=== PATIENT | female | born 1975 | race Caucasian/White ===

== ENCOUNTER 2017-04-18 15:39 | Emergency (ER) | payer MEDICAID ==
--- NOTE | 2017-04-18 16:01 | ED Physician Chart ---
ED Chief Complaint/HPI - Patient Information Date Seen:: 04/18/17 Time Seen:: 15:50 Chief Complaint:: Low back pain for about one week. History of Present Illness:: Pt came in by private auto for the above reason. Pt denies any low back injury. No weakness or numbness. No urinary or fecal incontinence or retention. No known precipitating or aggravating factors for her low back pain. No fever. No dysuria, urgency, or frequency with urination. No vaginal bleeding or discharge. Pt had last analgesic use with Tylenol 500 mg po at about 0200 today. Pt also has had intermittent pelvic pain/cramp for about a year. She has been followed by PCP Dr. Johnson with last visit about a month ago. Pt prefers not to have her pelvic problem evaluated here as it has been managed by Dr. Johnson already. Pt became upset because so many questions were asked. I explained to pt that the questions are standard in our computerized medical record. I reassured pt that I will provide excellent care for her. Pt calmed down and decided to continue further history taking and physical examination. My nurse Ms. Bailee Terrell was at bedside witnessing my continued history taking and physical examination. Allergies:: Allergies Allergy/AdvReac Type Severity Reaction Status Date / Time erythromycin base Allergy Verified 04/18/17 15:44 Vitals:: Vital Signs - 8 hr 04/18/17 15:40 Temp 98.3 F HR 88 RR 16 BP 126/92 O2 Sat % 98 Historian:: Patient Family MD/PCP:: Dr. Johnson LMP:: 04/12/17 Review:: Nurse's Note Reviewed ED Review of Systems - Review of Systems General/Constitutional: No fever, No chills, Weight loss (?), No weakness, No diaphoresis, No edema, No loss of appetite Skin: No skin lesions, No rash, No bruising Head: No headache, No light-headedness Eyes: No loss of vision, No pain, No diplopia ENT: No earache, No nasal drainage, No sore throat Neck: No neck pain, No swelling, No stiffness, No mass noted Cardio Vascular: No chest pain, No palpitations, No edema Pulmonary: No SOB, No cough, No wheezing GI: No nausea, No vomiting, No diarrhea, No pain G/U: No dysuria, No frequency, No hematuria Retarder Operator: No vaginal discharge, No abnormal vaginal bleed Musculoskeletal: No bone or joint pain Endocrine: No polyuria, No polydipsia Psychiatric: Prior psych history, No depression, Anxiety, No suicidal ideation, No homicidal ideation, No auditory hallucination, No visual hallucination Hematopoietic: No bruising, No lymphadenopathy Allergic/Immuno: No urticaria, No angioedema Neurological: No syncope, No focal symptoms, No weakness, No paresthesia, No headache, No dizziness, No confusion ED Past Medical History - Past Medical History Past Medical History: No significant medical hx Family History: Cancer (MGGM, M aunt.) Social History: Non Smoker, Alcohol (occasional), Illicit Drug Use (marijuana. Pt has been informed about health risks associated with chronic marijuana use and has been advised to stop. Pt acknowledges understanding.), Single, Other ( lives with her children.) Employment:: unemployed. Surgical History: (x 2 with last one about 7 y/a.) Psychiatricy History: Other (Anxiety disorder.) Medication: Reviewed Family Medical History - Family Member Mother History Unknown: Yes Aunt Hx Family Cancer: Yes ED Physical Exam - Physical Examination General/Constitutional: Awake, Well-developed, well-nourished, Alert, No distress, GCS 15, Non-toxic appearing, Ambulatory Other Gen/Cons comments:: Breathes comfortably, speaks clearly, and ambulates without difficulty. Head: Atraumatic Eyes: Lids, conjuctiva normal, PERRL, EOMI Skin: Nl inspection, No rash, No skin lesions, No ecchymosis, Well hydrated, No lymphadenopathy ENMT: External ears, nose nl, Nasal exam nl, Lips, teeth, gums nl, Oropharynx nl Neck: Nontender, Full ROM w/o pain, No nuchal rigidity, No mass, No stridor Respiratory: Nl effort/Exclusion, Clear to Auscultation, No Wheeze/Rhonchi/Rales Cardio Vascular: RRR, No murmur, gallop, rubs GI: No tenderness/rebounding/guarding, No organomegaly, No hernia, Normal BS's, Nondistended, No mass/bruits : No CVA tenderness Extremities: No tenderness or effusion, Full ROM, normal strength in all extremities, No edema Neuro/Psych: Alert/oriented (oriented x 3), Normal gait, No focal deficits Other Misc comments:: Mild vague tenderness at mid lower lumbar region. No gross deformity, erythema, ecchymosis or open wound. Other:: Note: Physicial exam was performed in the presence of female nurse Shanta Bailee Terrell. ED Labs/Radiology/EKG Results - Lab Results Results: Laboratory Tests 04/18/17 04/18/17 04/18/17 16:42 16:42 16:42 WBC RBC Hgb Hct MCV MCH MCHC Differential RDW Plt Count MPV Neutrophils % Lymphocytes % Monocytes % Eosinophils % Basophils % Sodium Potassium Chloride Carbon Dioxide Anion Gap BUN Creatinine Est GFR ( Amer) Est GFR (Non-Af Amer) BUN/Creatinine Ratio Glucose Calcium Total Bilirubin AST ALT Alkaline Phosphatase Total Protein Albumin Globulin Albumin/Globulin Ratio Urine Source MIDSTREAM Urine Color YELLOW Urine Clarity CLEAR Urine pH 6.0 Ur Specific [place] <= 1.005 Urine Protein NEGATIVE Urine Glucose (UA) NEGATIVE Urine Ketones NEGATIVE Urine Blood SMALL H Urine Nitrate NEGATIVE Urine Bilirubin NEGATIVE Urine Urobilinogen 0.2 Ur Leukocyte Esterase NEGATIVE Urine RBC 2-5 Urine WBC 0-2 Ur Epithelial Cells FEW Urine Bacteria FEW Urine Test NEGATIVE Urine Opiates Screen NEGATIVE Urine Methadone Screen NEGATIVE Ur Barbiturates Screen NEGATIVE Ur Tricyclics Screen NEGATIVE Ur Phencyclidine Scrn NEGATIVE Amphetamines Screen NEGATIVE U Methamphetamines Scrn NEGATIVE U Benzodiazepines Scrn POSITIVE H U Cocaine Metab Screen NEGATIVE U Cannabinoids Screen POSITIVE H 04/18/17 04/18/17 16:50 16:50 WBC 8.9 RBC 4.82 Hgb 14.9 Hct 44.3 MCV 91.8 MCH 30.8 MCHC Differential 33.6 RDW 14.3 Plt Count 347 MPV 8.8 Neutrophils % 54.8 Lymphocytes % 30.3 Monocytes % 5.7 Eosinophils % 9.0 H Basophils % 0.2 Sodium 135 L Potassium 3.8 Chloride 101 Carbon Dioxide 28.2 Anion Gap 9.6 BUN 11 Creatinine 0.9 Est GFR ( Amer) > 60.0 Est GFR (Non-Af Amer) > 60.0 BUN/Creatinine Ratio 12.2 Glucose 103 Calcium 9.9 Total Bilirubin 0.5 AST 18 ALT 11 Alkaline Phosphatase 46 Total Protein 8.4 H Albumin 4.6 Globulin 3.8 Albumin/Globulin Ratio 1.2 Urine Source Urine Color Urine Clarity Urine pH Ur Specific [place] Urine Protein Urine Glucose (UA) Urine Ketones Urine Blood Urine Nitrate Urine Bilirubin Urine Urobilinogen Ur Leukocyte Esterase Urine RBC Urine WBC Ur Epithelial Cells Urine Bacteria Urine Test Urine Opiates Screen Urine Methadone Screen Ur Barbiturates Screen Ur Tricyclics Screen Ur Phencyclidine Scrn Amphetamines Screen U Methamphetamines Scrn U Benzodiazepines Scrn U Cocaine Metab Screen U Cannabinoids Screen - Radiology Results Results: LS spine X-ray (3v): Based on my interpretation, no acute fx or subluxation. Official report is pending. ED Septic Shock - . Is Septic Shock (SBP<90, OR Lactate>4 mmol\L) present?: No - <6hrs of presentation: Vital Signs: Vital Signs - 8 hr 04/18/17 15:40 Temp 98.3 F HR 88 RR 16 BP 126/92 O2 Sat % 98 ED Reassessment (Disposition) - Reassessment Reassessment:: 1645 Pt appears to be comfortable. Pain medication has been offered but pt declines and states that her low back pain is tolerable. 1800 Pt remains stable and comfortable. Remaining lab results and lumbar X-ray just became available. Lab and radiological findings have been reviewed with pt. Pt requests to go home now and does not want further observation/management in hospital. Aftercare instructions have been given. Reassessment Condition:: Improved - Diagnosis Diagnosis:: Low back pain by hx, consider lumbar sprain due to poor sleep posture. Stable. H/O chronic intermittent pelvic cramp. Stable and currently asymptomatic. Pending further follow up by PCP Dr. Johnson. - Aftercare/Follow up Instructions Aftercare/Follow-Up Instructions:: Refer to Discharge Instructions Notes:: Bedrest for today. Back hygiene instructions have been given. May take Tylenol 500 mg tab one tab po q6h prn pain. F/U with PCP Dr. Johnson in one day for recheck. Return to ER immediately if condition worsens or if any further questions/problems. Medication Prescribed:: None - Patient Disposition Discharge/Transfer:: Home Time:: 18:05 Condition at Disposition:: Stable, Improved ED Discharge Plan - Patient Disposition Admit/Discharge/Transfer: PT DISCHARGED HOME Condition at Disposition: Stable Instructions: Back Pain, Adult, [id number] Additional Instructions: Pt. to DC home. Follow-up with primary MD
[2017-04-18 17:01] LABS: % BASOPHILS 0.2 % (0.0-2.0); % LYMPHOCYTES 30.3 % (20.0-50.0); % MONOCYTES 5.7 % (2.0-10.0); % NEUTROPHILS 54.8 % (40.0-80.0); HEMATOCRIT 44.3 % (41.0-60); HEMOGLOBIN 14.9 gm/dL (12-16); MEAN CELL VOLUME 91.8 fl (81-100); MEAN CORPUSCULAR HEMOGLOBIN 30.8 pg (27.0-31.0); MEAN CORPUSCULAR HGB CONC 33.6 pg (28.0-36.0); MEAN PLATELET VOLUME 8.8 fl; NEUTROPHILE ABSOLUTE 4.9 Th/cmm (1.8-8.0); PLATELET COUNT 347 Th/cmm (150-400); RED BLOOD COUNT 4.82 Mil/cmm (3.80-5.10); RED CELL DISTRIBUTION WIDTH 14.3 % (11.5-20.0); WHITE BLOOD COUNT 8.9 Th/cmm (4.8-10.8)
[2017-04-18 17:05] LABS: URINE BILIRUBIN NEGATIVE (NEGATIVE); URINE BLOOD SMALL (NEGATIVE); URINE GLUCOSE (UA) NEGATIVE (NEGATIVE); URINE KETONE NEGATIVE (NEGATIVE); URINE PROTEIN NEGATIVE (NEGATIVE); URINE UROBILINOGEN 0.2 E.U./dL (0.2 - 1.0)
[2017-04-18 17:09] LABS: URINE BACTERIA FEW /hpf (NONE SEEN); URINE COLOR YELLOW; URINE EPITHELIAL CELLS FEW /lpf (FEW); URINE WBC 0-2 /hpf (0-5)
[2017-04-18 17:13] LABS: AMPHETAMINE URINE NEGATIVE (NEGATIVE); BARBITURATES URINE NEGATIVE (NEGATIVE); METHADONE URINE NEGATIVE (NEGATIVE)
[2017-04-18 17:14] LABS: ANION GAP 9.6 (7.0-16.0); BUN - UREA NITROGEN 11 mg/dL (7-25); BUN/CREATININE RATIO 12.2; CARBON DIOXIDE 28.2 mEq/L (21.0-31.0); CHLORIDE 101 mEq/L (98-107); CREATININE - SERUM 0.9 mg/dL (0.6-1.2); GLUCOSE 103 mg/dL (70-105); POTASSIUM SERUM 3.8 mEq/L (3.5-5.1); SODIUM SERUM 135 mEq/L (136-145)
[2017-04-18 17:15] LABS: ALB/GLOB RATIO 1.2 (1.0-1.8); ALKALINE PHOSPHATASE 46 U/L (34-104); BILIRUBIN,TOTAL 0.5 mg/dL (0.3-1.0); CALCIUM SERUM 9.9 mg/dL (8.6-10.3); SGOT 18 U/L (13-39); SGPT/ALT 11 U/L (7-52)
--- NOTE | 2017-04-19 08:09 | Diagnostic Imaging Report ---
Lumbar spine 3 views Indication: pain Comparison: none Findings: No evidence of an acute compression fracture or subluxation. The disc space heights are preserved. Minimal early facet degenerative changes are noted. The SI joints are preserved. There appear to be costochondral calcifications along the upper abdomen. 2 mm calcific density of the right pelvis noted likely a phlebolith. Impression: No evidence of an acute compression fracture or subluxation. Minimal degenerative changes. In the setting of trauma, if clinical symptoms persist and there is continued concern for an occult fracture, follow up exams in 5-7 days is suggested.
== END 2017-04-18 18:25 | disposition home or self-care (01) ==
LOC: ER 15:39
DX: M54.5 Low back pain (principal)
CPT/HCPCS: 36415-UA; 72110-TC; 80053-TC; 80307; 81001-TC; 81025-TC; 85025-TC